=== PATIENT | male | born 1985 | race Caucasian/White ===

== ENCOUNTER 2018-11-02 19:36 | Emergency (ER) | payer MEDICAID ==
[~2018-11-02] VITALS: Ht 175.3 cm; Wt 100.0 kg
[~2018-11-02 19:36] MED LIST: CHLO25CA10 PO; GABA-532 PO; NO HOME MEDS
[2018-11-02] MEDS ORDERED: levetiracetam inj 1,000 MG in normal saline 100ml IV soln 90 ML IV ONE (20:15)
[2018-11-02] MEDS ORDERED: LORazepam 2 mg/ml vial IV ONE (20:15)
[2018-11-02] MEDS ORDERED: normal saline 1000ml 1,000 ML IV ONE ×2 (20:15→21:10)
[2018-11-02 20:30] LABS: BASOPHILS # (AUTO) 0.1 X10'3 (0-0.2); EOSINOPHILS # (AUTO) 0.1 X10'3 (0-0.9); EOSINOPHILS % (AUTO) 0.7 % (0-6); HEMATOCRIT 44.4 % (42.0-52.0); HEMOGLOBIN 15.4 g/dl (14.0-17.9); LYMPHOCYTES # (AUTO) 1.1 X10'3 (1.1-4.8); LYMPHOCYTES % (AUTO) 14.4 % (21-51); MEAN CORPUSCULAR HGB CONC 34.6 g/dL (33.0-36.5); MEAN CORPUSCULAR VOLUME 101.4 FL (78-98); MEAN PLATELET VOLUME 9.7 FL (7.4-10.4); MONOCYTES # (AUTO) 1.2 X10'3 (0-0.9); MONOCYTES % (AUTO) 15.6 % (2-12); NEUTROPHILS # (AUTO) 5.2 X10'3 (1.8-7.7); NEUTROPHILS % (AUTO) 68.3 % (42-75); PLATELET COUNT 82 X10'3 (140-440); RED BLOOD COUNT 4.38 X10'6 (4.70-6.10); RED CELL DISTRIBUTION WIDTH 13.2 % (11.5-14.5); WHITE BLOOD COUNT 7.6 X10'3 (4.5-11.0)
[2018-11-02 20:41] LABS: ALANINE AMINOTRANSFERASE 71 U/L (12-78); ALBUMIN 4.5 G/DL (3.4-5.0); ALKALINE PHOSPHATASE 100 IU/L (46-116); ANION GAP 29 (8-16); ASPARTATE AMINO TRANSFERASE 172 U/L (10-37); BILIRUBIN,TOTAL 1.2 MG/DL (0.1-1.0); BLOOD UREA NITROGEN 4 MG/DL (7-18); BUN/CREATININE RATIO 4.2 (5.4-32.0); CALCIUM 9.5 MG/DL (8.5-10.1); CHLORIDE 96 MMOL/L (99-107); CREATININE 0.95 MG/DL (0.60-1.10); ETHANOL 0.022 GM/DL (0.0-0.010); GLUCOSE 126 MG/DL (70-104); MAGNESIUM 1.7 MG/DL (1.5-2.4); POTASSIUM 3.2 MMOL/L (3.5-5.1); SODIUM 137 MMOL/L (135-145); TOTAL PROTEIN 8.8 G/DL (6.4-8.2); TROPONIN I < 0.04 NG/ML (0.0-0.05); eGFR > 90 ML/MIN
[2018-11-02] MEDS ORDERED: thiamine 100mg/ml 2ml inj. IV ONE (20:45)
[2018-11-02] MEDS ORDERED: thiamine inj. 100 MG, magnesium sulf injection 2 GM, MVI, adult No.4 with vit. K 10 ML ... IV ONE ×4 (20:45)
[2018-11-02 20:48] LABS: TOTAL CARBON DIOXIDE 12.4 MMOL/L (24-32)
[2018-11-02] MEDS ORDERED: ketorolac trometh. 30mg/ml inj. IV ONE (21:20)
[2018-11-02] MEDS ORDERED: potassium 10mEq/100ml NS w/LIDOcaine (10mg/bag) IV ONE (21:25)
[2018-11-02 22:56] LABS: CLARITY,URINE CLEAR (Clear); COLOR,URINE YELLOW (Yellow); GLUCOSE, URINE NEGATIVE (Neg); KETONES,URINE TRACE mg/dl (Neg); LEUKOCYTE ESTERASE ,URINE NEGATIVE (Neg); NITRITES, URINE NEGATIVE (Neg); OCCULT BLOOD,URINE SMALL (Neg); PROTEIN,URINE 30 mg/dl (Neg); UROBILINOGEN,URINE 0.2 E.U/dL (0.2-1.0)
[2018-11-02 22:59] LABS: UA COLLECTION TYPE CLN CATCH MIDSTREAM
[2018-11-02 23:02] LABS: BACTERIA,URINE NONE SEEN /HPF (Neg); MUCUS STRANDS MODERATE /LPF (Neg); RBC,URINE 0-2 /HPF (0-2); SPERM FEW /HPF (NEGATIVE); SQUAMOUS EPITHELIAL CELL,UR FEW /LPF (FEW)
[2018-11-02 23:09] LABS: URINE AMPHETAMINE SCREEN NEGATIVE (Neg); URINE BARBITUATE SCREEN NEGATIVE (Neg); URINE BENZODIAZEPINES SCREEN NEGATIVE (Neg); URINE CANNABINOID SCREEN NEGATIVE (Neg); URINE COCAINE SCREEN NEGATIVE (Neg); URINE METHADONE SCREEN NEGATIVE (Neg); URINE OPIATE SCREEN NEGATIVE (Neg); URINE PHENCYCLIDINE SCREEN NEGATIVE (Neg)
[2018-11-03 00:34] LABS: ALBUMIN 3.6 G/DL (3.4-5.0); ANION GAP 10 (8-16); BLOOD UREA NITROGEN 4 MG/DL (7-18); BUN/CREATININE RATIO 6.3 (5.4-32.0); CALCIUM 8.2 MG/DL (8.5-10.1); CHLORIDE 103 MMOL/L (99-107); CREATININE 0.63 MG/DL (0.60-1.10); GLUCOSE 124 MG/DL (70-104); POTASSIUM 3.2 MMOL/L (3.5-5.1); SODIUM 138 MMOL/L (135-145); TOTAL CARBON DIOXIDE 24.6 MMOL/L (24-32); eGFR > 90 ML/MIN
[2018-11-03] MEDS ORDERED: chlordiazePOXIDE 25mg capsule PO ONE (00:45)
[2018-11-03] MEDS ORDERED: KEP500T PO (01:54)
[2018-11-03] MEDS ORDERED: CHLO25CA10 PO (01:54)
[2018-11-03 02:07] VITALS: BP 159/80
== END 2018-11-03 02:09 | disposition home or self-care (01) ==
LOC: ER 19:37
DX: R56.9 Unspecified convulsions (principal); R25.1 Tremor, unspecified; F32.9 Major depressive disorder, single episode, unspecified; Z59.0 Homelessness
CPT/HCPCS: 36415; 70450; 71045; 80048; 80053; 80305; 80320; 81001; 83735; 84484; 85025; 87088; 93005; 96365; 96367; 96375; 99284; J1885; J1953; J2060; J3411; J3475; J3480; J7030; J7060

== ENCOUNTER 2020-04-02 14:10 | Emergency (ER) | payer MEDICAID ==
[~2020-04-02] VITALS: Ht 175.3 cm; Wt 90.9 kg
[~2020-04-02 14:10] MED LIST changes: +KEP500T PO
[2020-04-02 14:16] VITALS: BP 147/88
== END 2020-04-02 14:55 | disposition home or self-care (01) ==
LOC: ER 14:11
DX: F10.10 Alcohol abuse, uncomplicated (principal); F32.9 Major depressive disorder, single episode, unspecified; Z59.0 Homelessness; Z60.2 Problems related to living alone; Z88.8 Allergy status to other drugs, medicaments and biological substances; Z79.899 Other long term (current) drug therapy; Y90.9 Presence of alcohol in blood, level not specified
CPT/HCPCS: 99281